=== PATIENT | male | born 1950 | race American Indian/Alaskan Native ===

== ENCOUNTER 2019-04-16 07:26 | Day surgery (SDC) | payer OTHER ==
[~2019-04-16 07:26] MED LIST: SODIUM CHLORIDE 0.9% 1000 ML 1,000 ML IV SCH
[2019-04-16] MEDS ORDERED: WATER FOR IRRIG STERILE 250 ML BOTTLE IR ONE (08:00)
[2019-04-16] MEDS ORDERED: WATER FOR IRRIG STERILE 1,000 ML BOTTLE ONE (08:01)
--- NOTE | 2019-04-16 08:10 | Anesthesia Day of Surgery ---
Anesthesia Day of Surgery - Day of Surgery Patient Examined: Yes Patient H&P Reviewed: Yes Patient is NPO: Yes Beta Blockers: Yes
--- NOTE | 2019-04-16 08:10 | Anesthesia Consultation ---
Anesthesia Consult and Med Hx Date of service: 04/16/19 - Airway Anesthetic Teeth Evaluation: Dentures, Edentulous ROM Head & Neck: Inadequate Mental/Hyoid Distance: Inadequate Mallampati Class: Class III Intubation Access Assessment: Possibly Difficult - Pre-Operative Health Status ASA Pre-Surgery Classification: ASA3 Proposed Anesthetic Plan: MAC - Pulmonary Hx Smoking: Yes (History of smoking; quit) - Cardiovascular System Hx Hypertension: Yes - Gastrointestinal Hx Gastroesophageal Reflux Disease: Yes - Endocrine Hx Liver Disease: Yes (Hyperlipidemia) Hx Non-Insulin Dependent Diabetes: Yes - Other Systems Hx Obesity: Yes
[2019-04-16] MEDS ORDERED: PROPOFOL 200 MG/20 ML VIAL IV ONE ×2 (08:57)
--- NOTE | 2019-04-16 09:31 | Procedure Note ---
Date of procedure: 04/16/19 Pre-op diagnosis: GERD/ Colon Polyp Screening Post-op diagnosis: other (Moderate,Erosive Esophagitis/Gastritis/Mild,Duodenitis/No colon Polyps noted/Few, Scattered Diverticuli/ Partial Colon Resection (Proximal colon secondary to injury)) Procedure: EGD with Biopsy and Colonoscopy Anesthesia: [facility] [place] Surgeon: TARA ARAGON Estimated blood loss: minimal Pathology: list Specimen disposition: to lab Condition: stable Disposition: same day (Treat with PPI and encourage fiber intake. Avoid aspirin and NSAID for 4 days; otherwise resume home medication and follow up in 1 to 2 weeks ([phone]).)
--- NOTE | 2019-04-16 09:44 | Operative Report ---
PROCEDURE: Esophagogastroduodenoscopy with biopsy. INDICATIONS: The patient is a 68-year-old -Citizen Of [place] gentleman who is a , has been having GERD symptoms. EGD was done to make sure there was not any significant upper GI pathology accounting for the patient's symptoms and problems. DESCRIPTION OF PROCEDURE: The procedure was done after getting informed consent with MAC anesthesia. Instrument was passed through the hypopharynx into the esophagus, which showed moderate distal erosive esophagitis. Photo documentation and biopsy was obtained from the distal esophagus to assess for the severity of the esophagitis. The stomach showed gastritis. No peptic ulcer disease was noted within the gastric lumen either in the straight or the retroverted view. The pylorus was patent. The duodenum in the bulb showed some mild duodenitis. Second portion appeared normal. Biopsy was done from the gastric antrum, gastric body, and angular incisura to rule out for H. pylori and atrophic gastritis. There was minimal bleeding from the biopsy sites and no complications associated with it. ASSESSMENT: Gastroesophageal reflux disease symptoms, moderate erosive esophagitis, gastritis, mild duodenitis. No peptic ulcer disease noted. PLAN: Plan is to treat the patient with PPI. The patient is to have a colonoscopy, also done as part of colon polyp screening. Because of the biopsy and minimal bleeding associated with the procedure, the patient will be asked to refrain from using aspirin and aspirin-related products and anticoagulants for the next 4 days, but resume other medication and follow up in the office in 1-2 weeks' time. The procedure was done in the GI lab with the assistance of the GI lab team, which included RN, Bety Lucio, patricia Greene and with the assistance of anesthesia. JOB# [id number] STANISLAW/RENATA
--- NOTE | 2019-04-16 09:48 | Operative Report ---
PROCEDURE: Colonoscopy. INDICATIONS: This is a 68-year-old -English gentleman who is a who had an EGD done prior to the colonoscopy that showed presence of moderate erosive esophagitis, gastritis, and duodenitis, but no peptic ulcer disease. Colonoscopy was done as part of colon polyp screening. The patient is said to have had an injury in [place]. He is a and had some surgery. DESCRIPTION OF PROCEDURE: The procedure was done after getting informed consent with MAC anesthesia. Initial rectal exam was unremarkable. Instrument was passed through the rectum onto the proximal colon, where surgical changes were noted. The terminal ileum was intubated showed normal mucosa. The proximal colon and transverse colon showed normal mucosa. There were a few scattered diverticula noted in the left colon and the rectum appeared normal on the retroverted view. There were no biopsies done and no bleeding associated with the colonoscopy. ASSESSMENT: Colon polyp screening, no colon polyps noted. Few scattered diverticula involving the left colon and partial colon resection involving the proximal colon. No internal hemorrhoid. PLAN: To treat the patient with PPI because of the EGD findings of esophagitis, gastritis and mild duodenitis. The patient will again be asked to avoid aspirin and aspirin-related products for the next 4 days, otherwise resume home medication. Follow up in the office in 1-2 weeks' time. The procedure was done in the GI lab with assistance of the GI lab team, which included RN, Bety Lucio, patricia Greene and with the assistance of anesthesia. JOB# [id number] STANISLAW/RENATA
[2019-04-16 10:04] VITALS: BP 122/81
--- NOTE | 2019-04-16 10:17 | Post Anesthesia Evaluation ---
- Post Anesthesia Evaluation Patient Participated: Yes Airway Patent: Yes Stable Respiratory Function: Yes Nausea/Vomiting: No Temp > 96.8F: Yes Pain Manageable: Yes Adequeate Hydration: Yes Anesthesia Complications: No Block Receding Appropriately: Not Applicable Patient on Ventilator: No
== END 2019-04-16 07:27 | disposition home or self-care (01) ==
LOC: GIO 07:26
DX: Z12.11 Encounter for screening for malignant neoplasm of colon (principal); K21.0 Gastro-esophageal reflux disease with esophagitis; K63.89 Other specified diseases of intestine; K29.40 Chronic atrophic gastritis without bleeding; K31.89 Other diseases of stomach and duodenum; K29.80 Duodenitis without bleeding; E78.00 Pure hypercholesterolemia, unspecified; E11.9 Type 2 diabetes mellitus without complications; E66.9 Obesity, unspecified; Z87.891 Personal history of nicotine dependence; Z79.84 Long term (current) use of oral hypoglycemic drugs; Z79.899 Other long term (current) drug therapy; Z98.890 Other specified postprocedural states; Z68.33 Body mass index [BMI] 33.0-33.9, adult
CPT/HCPCS: 43239; 45378; 82962; 88305; 88342; J2704; J7030